=== PATIENT | male | born 1940 | race Caucasian/White ===

== ENCOUNTER 2016-08-28 11:21 | Emergency (ER) | payer MEDICARE ==
[2016-08-28 11:30] VITALS: BP 130/64; PULSE 74; RESP 18
--- NOTE | 2016-08-28 11:51 | US ---
EXAMINATION TYPE: US venous doppler duplex LE LT DATE OF EXAM: 08/28/2016 10:58 AM COMPARISON: NONE CLINICAL HISTORY: R60.0 Edema lower left extremity. Left thigh swelling x 3 days SIDE PERFORMED: Left TECHNIQUE: The lower extremity deep venous system is examined utilizing real time linear array sonog patricia with graded compression, doppler sonography and color-flow sonography. VESSELS IMAGED: External Iliac Vein (EIV) Common Femoral Vein Deep Femoral Vein Greater Saphenous Vein * Femoral Vein Popliteal Vein Small Saphenous Vein * Proximal Calf Veins (* superficial vessels) Left Leg: Positive for DVT from EIV through proximal calf veins, partial flow seen within popliteal vein IMPRESSION: 1. Deep venous thrombosis through the left lower extremity.
[2016-08-28] MEDS ORDERED: APIXABAN 5 MG TAB PO STA (12:08)
--- NOTE | 2016-08-28 12:09 | ED ---
Lower Extremity Injury HPI - General Chief Complaint: Extremity Injury, Lower Stated Complaint: blood clot Time Seen by Provider: 08/28/16 11:43 Source: patient, RN notes reviewed Mode of arrival: wheelchair Limitations: no limitations - History of Present Illness Initial Comments: 68-year-old male presents emergency Department chief complaint of left leg swelling. Patient states this started a few days ago he has minimal pain. Patient denies any chest pain, shortness breath, palpitations. He has no history of DVT. Patient states he felt that he strained his groin a few days ago and started. Denies any recent long distance traveling. Patient has nausea , vomiting. Denies any open sores or lesions. - Related Data Home Medications Medication Instructions Recorded Confirmed Aspirin 81 mg PO DAILY 01/18/14 08/28/16 Fenofibrate [Tricor] 160 mg PO DAILY 01/18/14 08/28/16 Fish Oil/Dha/Epa [Fish Oil 1,200 1 cap PO DAILY 01/18/14 08/28/16 mg Fish Oil] Folic Acid 1 mg PO DAILY 01/18/14 08/28/16 Folic Acid/Mv,Fe,Min [Centrum 1 tab PO DAILY 01/18/14 08/28/16 Multivitamin Tab Chew] Lisinopril [Zestril] 20 mg PO DAILY 01/18/14 08/28/16 Methotrexate Sodium [Methotrexate] 15 mg PO DIRECTED 01/18/14 08/28/16 Folic Acid 1 mg PO WE 08/28/16 08/28/16 Hydrochlorothiazide [Hydrodiuril] 25 mg PO DAILY 08/28/16 08/28/16 Simvastatin [Zocor] 40 mg PO HS 08/28/16 08/28/16 Previous Rx's Medication Instructions Recorded Apixaban [Eliquis] 0 mg PO DIRECTED #74 tablet 08/28/16 Allergies Allergy/AdvReac Type Severity Reaction Status Date / Time No Known Allergies Allergy Verified 08/28/16 11:41 Review of Systems ROS Statement: Those systems with pertinent positive or pertinent negative responses have been documented in the HPI. ROS Other: All systems not noted in ROS Statement are negative. Past Medical History Past Medical History: Hyperlipidemia, Hypertension, Osteoarthritis (OA), Skin Disorder Additional Past Medical History / Comment(s): psoriasis History of Any Multi-Drug Resistant Organisms: None Reported Past Surgical History: Bladder Surgery, Cholecystectomy, Orthopedic Surgery Past Anesthesia/Blood Transfusion Reactions: No Reported Reaction Past Psychological History: No Psychological Hx Reported Smoking Status: Former smoker Past Alcohol Use History: Occasional Past Drug Use History: None Reported General Exam Limitations: no limitations General appearance: alert, in no apparent distress Head exam: Present: atraumatic, normocephalic, normal inspection Respiratory exam: Present: normal lung sounds bilaterally. Absent: respiratory distress, wheezes, rales, rhonchi, stridor Cardiovascular Exam: Present: regular rate, normal rhythm, normal heart sounds. Absent: systolic murmur, diastolic murmur, rubs, gallop, clicks Extremities exam: Present: other (There is swelling noted of the left leg pedal pulses equal bilaterally) Course Vital Signs 08/28/16 11:27 Pulse Rate 74 Respiratory 18 Rate Blood Pressure 130/64 O2 Sat by Pulse 96 Oximetry Medical Decision Making - Medical Decision Making 76-year-old male present emergency from for left leg DVT. Patient was given eliquis emergency department. Patient be discharged on eliquis. Patient follow -up with PCP for continuation of treatment. Patient has no chest pain or shortness breath. Return parameters were discussed. Disposition Clinical Impression: DVT, lower extremity Disposition: HOME SELF-CARE Condition: Stable Instructions: Deep Venous Thrombosis (ED) Additional Instructions: Please return to the Emergency Department if symptoms worsen or any other concerns. Prescriptions: Apixaban [Eliquis] 0 mg PO DIRECTED #74 tablet Referrals: Ryan Arevalo DO [STAFF PHYSICIAN] - 1-2 days Time of Disposition: 12:09
== END 2016-08-28 12:18 | disposition home or self-care (01) ==
LOC: EC 11:21
DX: I82.4Y2 Acute embolism and thrombosis of unspecified deep veins of left proximal lower extremity (principal); E78.5 Hyperlipidemia, unspecified; I10 Essential (primary) hypertension; L40.9 Psoriasis, unspecified; M19.90 Unspecified osteoarthritis, unspecified site; Z87.891 Personal history of nicotine dependence; Z79.82 Long term (current) use of aspirin; Z79.899 Other long term (current) drug therapy
CPT/HCPCS: 99283

== ENCOUNTER → 2016-11-12 | Outpatient (CLI) | payer MEDICARE ==
--- NOTE | 2016-11-12 14:27 | US ---
EXAMINATION TYPE: US venous doppler duplex LE LT DATE OF EXAM: 11/12/2016 1:14 PM COMPARISON: US August 28, 2016 CLINICAL HISTORY: LLE I82.402 Deep vein thrombosis. Patient on Xeralto. SIDE PERFORMED: Left TECHNIQUE: The lower extremity deep venous system is examined utilizing real time linear array sonog patricia with graded compression, doppler sonography and color-flow sonography. VESSELS IMAGED: External Iliac Vein (EIV) Common Femoral Vein Deep Femoral Vein Greater Saphenous Vein * Femoral Vein Popliteal Vein Proximal Calf Veins (* superficial vessels) Left Leg: Positive for DVT, thrombus seen from CFV through distal FV with little to no flow, the pop vessels have flow with thickened vessel mccrary. Compression imaging deferred throughout. IMPRESSION: Persistent significant long segment thrombus redemonstrated without significant improveme nt from prior.
== END | disposition home or self-care (01) ==
LOC: RADUSWWP 12:54
PROVIDERS: ATTEND Family Medicine
DX: I82.402 Acute embolism and thrombosis of unspecified deep veins of left lower extremity (principal)

== ENCOUNTER → 2019-05-12 | Outpatient (CLI) | payer MEDICARE ==
[2019-05-12 10:23] LABS: HCT 46.7 % (39.0-53.0); HGB 16.2 gm/dL (13.0-17.5); MCH 34.1 pg (25.0-35.0); MCHC 34.7 g/dL (31.0-37.0); MCV 98.3 fL (80.0-100.0); Mean Platelet Volume 7.2; Platelet Count 191 k/uL (150-450); RBC 4.75 m/uL (4.30-5.90); RDW 13.4 % (11.5-15.5); WBC 5.8 k/uL (3.8-10.6)
[2019-05-12 10:31] LABS: Prothrombin Time 10.9 sec (9.0-12.0)
[2019-05-12 10:34] LABS: Amorphous Sediment,Urine Rare /hpf; Appearance,Urine Turbid (Clear); Bacteria,Urine Rare /hpf; Bilirubin,Urine Negative (Negative); Blood,Urine Trace (Negative); Color,Urine Yellow; Glucose,Urine (UA) Negative (Negative); Ketones,Urine Negative (Negative); Leukocyte Esterase,Urine Large (Negative); Mucus,Urine Rare /hpf; Nitrite,Urine Positive (Negative); PH, Urine 7.5 (5.0-8.0); Protein,Urine Trace (Negative); RBC,Urine 14 /hpf (0-5); Specific Gravity,Urine 1.015 (1.001-1.035); Squamous Epithelial Cell,Urine 1 /hpf (0-4); Urobilinogen,Urine <2.0 mg/dL (<2.0); WBC,Urine >182 /hpf (0-5)
[2019-05-12 10:39] LABS: Albumin 4.3 g/dL (3.5-5.0); Calcium 10.2 mg/dL (8.4-10.2); Potassium 3.9 mmol/L (3.5-5.1); Total Bilirubin 0.9 mg/dL (0.2-1.3); Total Protein 7.3 g/dL (6.3-8.2)
== END | disposition home or self-care (01) ==
LOC: LABPAT 09:44
PROVIDERS: ATTEND Orthopaedic Surgery
DX: Z01.818 Encounter for other preprocedural examination (principal); Z01.812 Encounter for preprocedural laboratory examination; M17.12 Unilateral primary osteoarthritis, left knee; Z79.01 Long term (current) use of anticoagulants
CPT/HCPCS: 80053; 81001; 85027; 85610; 85730; 87070; 93005